=== PATIENT | male | born 1995 | race Caucasian/White ===

== ENCOUNTER 2021-02-28 15:04 | Outpatient (CLI) | payer MEDICAID | END 2021-02-28 15:05 | disposition critical access hospital (66) | LOC: EMS 15:04 | DX: F41.0 Panic disorder [episodic paroxysmal anxiety] (principal) | CPT/HCPCS: A0425; A0429; A0999 ==

== ENCOUNTER 2021-02-28 15:27 | Emergency (ER) | payer MEDICAID ==
[2021-02-28 15:41] VITALS: BP 132/107
--- NOTE | 2021-02-28 15:59 | ED Physician Documentation ---
History of Present Illness - Stated complaint Stated Complaint: CHEST TIGHTNESS - Chief complaint Chief Complaint: General - History obtained from History obtained from: Patient - Additonal information Additional information: Getting out of the shower about 1300, BLE tingly, then chest pressure/tightness and SOA. Pain radiated across chest, not elsewhere. Chest tightness continues, but somewhat better. Review of Systems Ten Systems: 10 systems reviewed and negative Constitutional: denies: Fever, Chills Eyes: reports: Reviewed and negative Ears: reports: Reviewed and negative Nose: reports: Reviewed and negative Cardiac: reports: Chest pain / pressure. denies: Palpitations Respiratory: reports: Dyspnea. denies: Cough PD ED PE NORMAL - Vitals Vital signs reviewed: Yes - General General: Alert and oriented X 3, No acute distress - HEENT HEENT: PERRL, EOMI - Neck Neck: Supple, no meningeal sign, No bony TTP - Cardiac Cardiac: RRR, No murmur - Respiratory Respiratory: No respiratory distress, Clear bilaterally - Abdomen Abdomen: Normal bowel sounds, Soft, Non tender - Back Back: No CVA TTP, No spinal TTP - Derm Derm: Normal color, Warm and dry - Extremities Extremities: No edema, No calf tenderness / cord - Neuro Neuro: Alert and oriented X 3, Normal speech Results - Vitals Vitals: Vital Signs - 24 hr 02/28/21 15:28 Temperature 36.5 C Heart Rate 60 Respiratory 16 Rate Blood Pressure 132/107 H O2 Saturation 97 Oxygen O2 Source Room air - EKG (time done) 1538 Rate: Rate (enter#) (62) Rhythm: NSR Vanduser: LAD Intervals: Normal SD QRS: Normal Ischemia: Normal ST segments - Labs Labs: Laboratory Tests 02/28/21 16:08 Troponin I High Sens 3.3 - Rads (name of study) 2 view chest x-ray is normal Radiology: EMP read contemporaneously PD MEDICAL DECISION MAKING - ED course ED course: This young man has atypical chest pain that seems related to stress, he has trouble with his job right now and finances and he is quite worried about all of that. Aortic dissection is considered but chest x-ray is normal and there is no radiation of the pain to the back. Heart score 0. Departure - Departure Disposition: 01 Home, Self Care Clinical Impression: Atypical chest pain Condition: Good Record reviewed to determine appropriate education?: Yes Instructions: ED Chest Pain Atypical Unkn Cause Comments: Call your doctor to arrange a follow-up appointment, make the next available appointment. In the interim, return anytime if worse or if new symptoms develop.
--- NOTE | 2021-02-28 16:29 | XRAY Report ---
PROCEDURE: Chest 2 View X-Ray INDICATIONS: chest pain TECHNIQUE: 2 view(s) of the chest. COMPARISON: None. FINDINGS: Surgical changes and devices: None. Lungs and pleura: No pleural effusions or pneumothorax. Lungs are clear. Mediastinum: Mediastinal contours are normal. Heart size is normal. Bones and chest wall: No suspicious bony abnormalities. Soft tissues appear unremarkable. IMPRESSION: No acute cardiopulmonary pathology. Reviewed by: Kvng Zamora MD on 02/28/2021 4:28 PM PDT Approved by: Kvng Zamora MD on 02/28/2021 4:28 PM PDT Station ID: [id number]
== END 2021-02-28 17:53 | disposition home or self-care (01) ==
LOC: ED 15:27
DX: R07.89 Other chest pain (principal)
CPT/HCPCS: 36415; 84484; 93005; 99283; 99284